=== PATIENT | female | born 1955 | race Caucasian/White ===

== ENCOUNTER 2017-05-09 20:46 | Emergency (ER) | payer BC ==
[2017-05-09 20:46] VITALS: BMI 25.0
--- NOTE | 2017-05-09 21:07 | ED PDOC ---
Arrival/HPI - General Historian: Patient - General Time Seen by Provider: 05/09/17 20:51 - History of Present Illness Narrative History of Present Illness (Text): 05/09/17 21:05 61yo female with PMHx of GERD and hypercholestrolemia who present with complaint of epigastric discomfort, vomiting x 1 and diarrhea x 2 since this afternoon. she notes that she started Levaquin today for UTI. She denies hematemesis, hematochezia, fever, chills, chest pain, SOB, dizziness, sick contact, any other complaint. (Panda,Roman A) Past Medical History - Provider Review Nursing Documentation Reviewed: Yes - Infectious Disease Hx of Infectious Diseases: None - Tetanus Immunization Tetanus Immunization: Unknown - Cardiac Hx Hyperlipemia: Yes - Gastrointestinal Hx Gastroesophageal Reflux: Yes - Psychiatric Hx Depression: No Hx Emotional Abuse: No Hx Physical Abuse: No Hx Substance Use: No - Past Surgical History Past Surgical History: No Previous - Suicidal Assessment Feels Threatened In Home Enviroment: No Family/Social History - Physician Review Nursing Documentation Reviewed: Yes Family/Social History: Unknown Family HX Hx Alcohol Use: No Hx Substance Use: No Hx Substance Use Treatment: No Allergies/Home Meds Allergies/Adverse Reactions: Allergies No Known Allergies Allergy (Verified 05/09/17 21:10) Home Medications: Home Meds Medication Instructions Recorded Confirmed Simvastatin [Zocor] 20 mg PO DAILY 12/05/15 05/09/17 levoFLOXacin [Levaquin] 250 mg PO DAILY 05/09/17 05/09/17 Review of Systems - Physician Review All systems were reviewed & negative as marked: Yes - Review of Systems Constitutional: Normal Eyes: Normal ENT: Normal Respiratory: Normal Cardiovascular: Normal Gastrointestinal: Abdominal Pain, Diarrhea, Nausea, Vomiting. absent: Constipation, Hematochezia, Hematemesis Genitourinary Female: Normal Musculoskeletal: Normal Skin: Normal Neurological: Normal Endocrine: Normal Hemo/Lymphatic: Normal Psychiatric: Normal Physical Exam Vital Signs Reviewed: Yes Temperature: Afebrile Blood Pressure: Normal Pulse: Regular Respiratory Rate: Normal Appearance: Positive for: Well-Appearing, Non-Toxic, Comfortable Pain Distress: None Mental Status: Positive for: Alert and Oriented X 3 - Systems Exam Head: Present: Atraumatic, Normocephalic Pupils: Present: PERRL Extroacular Muscles: Present: EOMI Conjunctiva: Present: Normal Mouth: Present: Moist Mucous Membranes Neck: Present: Normal Range of Motion Respiratory/Chest: Present: Clear to Auscultation, Good Air Exchange. No: Respiratory Distress, Accessory Muscle Use Cardiovascular: Present: Regular Rate and Rhythm, Normal S1, S2. No: Murmurs Abdomen: Present: Normal Bowel Sounds, Other (Soft). No: Tenderness, Distention , Peritoneal Signs, Rebound, Guarding, McBurney's Point Tender, Rovsing's Sign Present Back: Present: Normal Inspection Upper Extremity: Present: Normal Inspection. No: Cyanosis, Edema Lower Extremity: Present: Normal Inspection. No: Edema Neurological: Present: GCS=15, CN II-XII Intact, Speech Normal Skin: Present: Warm, Dry, Normal Color. No: Rashes Psychiatric: Present: Alert, Oriented x 3, Normal Insight, Normal Concentration Vital Signs Temp Pulse Resp BP Pulse Ox 05/09/17 23:05 73 18 129/75 95 05/09/17 21:19 98.4 F 82 16 129/73 98 05/09/17 21:02 98.4 F 82 16 129/73 98 Medical Decision Making ED Course and Treatment: 05/10/17 02:01 PT in ED for stated history. She was hemoynamically stable in ED. Lab was unremarkable. UTI was noted in her UA. She is currently on Levaquin and requested a different abx. MAcrobid was given. Abdominal CT - No acute finding Result was DW the pt and she was referred to her PMD. (Roman Mosqueda) - Lab Interpretations Lab Results: 05/09/17 21:15 05/09/17 21:15 Lab Results 05/09/17 22:22: Urine Color yellow, Urine Appearance Clear, Urine pH 6.0, Ur Specific [place] 1.010, Urine Protein Negative, Urine Glucose (UA) Negative, Urine Ketones Negative, Urine Blood Small H, Urine Nitrate Negative, Urine Bilirubin Negative, Urine Urobilinogen 0.2, Ur Leukocyte Esterase Small H, Urine RBC 10 - 15, Urine WBC 10 - 15, Ur Epithelial Cells 6 - 8 05/09/17 21:35: PT 13.5 H, INR 1.23 H, APTT 32.0 05/09/17 21:15: Sodium 140, Potassium 4.2, Chloride 104, Carbon Dioxide 26, Anion Gap 14, BUN 13, Creatinine 0.8, Est GFR ( Amer) > 60, Est GFR (Non- Af Amer) > 60, Random Glucose 124 H, Calcium 9.3, Total Bilirubin 0.8, AST 32, ALT 45, Alkaline Phosphatase 100, Lactate Dehydrogenase 460, Total Creatine Kinase 118, Troponin I < 0.01, Total Protein 7.8, Albumin 4.3, Globulin 3.5, Albumin/Globulin Ratio 1.2, Amylase 90, Lipase 69 05/09/17 21:15: WBC 10.4, RBC 4.47, Hgb 13.7, Hct 40.9, MCV 91.5, MCH 30.6, MCHC 33.5, RDW 12.6, Plt Count 324, MPV 8.8, Gran % 74.3 H, Lymph % (Auto) 17.8 L, [place] % (Auto) 7.4 H, Eos % (Auto) 0.3 L, Baso % (Auto) 0.2, Gran # 7.70 H, Lymph # 1.8, Labette # 0.8 H, Eos # 0.0, Baso # 0.02 - RAD Interpretation Radiology Orders: 05/09/17 21:21 ABD & PELVIS W/O PO OR IV CONT [CT] Stat - Medication Orders Current Medication Orders: Discontinued Medications Famotidine (Pepcid) 20 mg IVP STAT STA Stop: 05/09/17 21:22 Last Admin: 05/09/17 21:44 Dose: 20 mg IVP Administration Document 05/09/17 21:44 YP (Rec: 05/09/17 21:44 [id number] Charges for Administration # of IVP Administrations 1 Sodium Chloride (Sodium Chloride 0.9%) 1,000 mls @ 100 mls/hr IV .Q10H STA Stop: 05/10/17 07:20 Last Admin: 05/09/17 21:35 Dose: 100 mls/hr eMAR Start Stop Document 05/09/17 21:35 YP (Rec: 05/09/17 21:44 YP [id number]) Intravenous Solution Start Date 05/09/17 Start Time 21:35 Ondansetron HCl (Zofran Inj) 4 mg IVP STAT STA Stop: 05/09/17 21:22 Last Admin: 05/09/17 21:42 Dose: 4 mg IVP Administration Document 05/09/17 21:42 YP (Rec: 05/09/17 21:44 YP [facility] [id number]) Charges for Administration # of IVP Administrations 1 Disposition/Present on Arrival - Present on Arrival Any Indicators Present on Arrival: No History of DVT/PE: No History of Uncontrolled Diabetes: No Urinary Catheter: No History Surgical Site Infection Following: None - Disposition Have Diagnosis and Disposition been Completed?: Yes Disposition Time: 11:35 Patient Plan: Discharge - Disposition Diagnosis: Nausea vomiting and diarrhea, Abdominal pain, UTI (urinary tract infection) Disposition: HOME/ ROUTINE Condition: STABLE Discharge Instructions (ExitCare): Urinary Tract Infection in Women (ED), Abdominal Pain (ED) Additional Instructions: Follow up with your doctor Follow BLAND diet and drink plenty of fluid Return to ED for any new or worsening symptoms Prescriptions: Famotidine [Pepcid] 0 % PO DAILY #10 tab Nitrofurantoin Macrocrystals [Macrobid] 100 mg PO BID #14 cap Ondansetron ODT [Zofran ODT] 4 mg PO Q6 #6 odt Referrals: Giselle Angel, [Primary Care Provider] - Follow up with primary Forms: [employer] ([place])
[2017-05-09 21:10] VITALS: TEMP 98.4
[2017-05-09] MEDS ORDERED: Sodium Chloride 0.9% 1,000 ML IV STA (21:21)
[2017-05-09 21:34] LABS: BASO # 0.02 K/mm3 (0.0-2.0); BASO % 0.2 % (0.0-3.0); EOS % 0.3 % (1.5-5.0); GRAN # 7.7 (1.4-6.5); GRAN % 74.3 % (50.0-68.0); HEMATOCRIT 40.9 % (36.0-48.0); LYMPH # 1.8 (1.2-3.4); LYMPH % 17.8 % (22.0-35.0); MEAN CELL VOLUME 91.5 fl (80.0-105.0); MEAN CORPUSCULAR HEMOGLOBIN 30.6 pg (25.0-35.0); MEAN CORPUSCULAR HGB CONC 33.5 g/dl (31.0-37.0); MEAN PLATELET VOLUME 8.8 fl (7.0-11.0); MONO # 0.8 (0.1-0.6); MONO % 7.4 % (1.0-6.0); RED CELL DISTRIBUTION WIDTH 12.6 % (11.5-14.5); WHITE BLOOD COUNT 10.4 10^3/ul (4.5-11.0)
[2017-05-09 21:45] LABS: ALB/GLOB RATIO 1.2 (1.1-1.8); ALKALINE PHOSPHATASE 100 U/L (38-126); ALT/SGPT 45 U/L (7-56); AMYLASE 90 U/L (35-125); AST/SGOT 32 U/L (14-36); BILIRUBIN,TOTAL 0.8 mg/dL (0.2-1.3); BLOOD UREA NITROGEN 13 mg/dL (7-21); CALCIUM 9.3 mg/dL (8.4-10.5); CARBON DIOXIDE 26 mmol/L (21-33); CHLORIDE 104 mmol/L (98-107); GFR AFRICAN-AMERICAN > 60; GLUCOSE,RANDOM 124 mg/dL (70-110); LIPASE 69 U/L (23-300); POTASSIUM 4.2 mmol/L (3.6-5.0); SODIUM 140 mmol/L (132-148); TOTAL PROTEIN 7.8 g/dL (5.8-8.3)
[2017-05-09 21:55] LABS: INR 1.23 (0.93-1.08)
[2017-05-09 21:55] LABS: TROPONIN I < 0.01 ng/mL
[2017-05-09 22:42] LABS: URINE BILIRUBIN NEGATIVE (NEGATIVE); URINE BLOOD SMALL (NEGATIVE); URINE GLUCOSE (UA) NEGATIVE (NEGATIVE); URINE KETONE NEGATIVE (NEGATIVE); URINE LEUKOCYTE ESTERASE SMALL Leu/uL (NEGATIVE); URINE PROTEIN NEGATIVE mg/dL (<30 mg/dL); URINE UROBILINOGEN 0.2 E.U./dL (<1 E.U./dL)
[2017-05-09 22:44] LABS: URINE APPEARANCE CLEAR (CLEAR)
[2017-05-09 23:11] VITALS: BP 129/75; PULSE 73; RESP 18; O2SAT 95
--- NOTE | 2017-05-09 23:11 | CT ---
EXAM: CT Abdomen and Pelvis Without Intravenous Contrast CLINICAL HISTORY: 61 years old, female; Pain; Abdominal pain TECHNIQUE: Axial computed tomography images of the abdomen and pelvis without intravenous contrast. All CT scans at this facility use one or more dose reduction techniques, viz.: automated exposure control; ma/kV adjustment per patient size (including targeted exams where dose is matched to indication; i.e. head); or iterative reconstruction technique. Coronal and sagittal reformatted images were created and reviewed. COMPARISON: None FINDINGS: Lower thorax: The bilateral lung bases are clear. ABDOMEN: Liver: No acute findings Gallbladder and bile ducts: No acute finding. No calcified stones. No intra-extrahepatic biliary ductal dilation. Pancreas: Limited evaluation secondary to the lack of intravenous contrast. Spleen: No acute findings. Adrenals: No acute findings. Kidneys and ureters: No obstructing stones. No hydronephrosis. PELVIS: Bladder: No acute findings. Reproductive: The uterus is nodular in contour. Appendix: The appendix is of normal caliber (series 3, image 126). ABDOMEN and PELVIS: Stomach and bowel: No acute findings. Peritoneum: No acute findings. Lymph nodes: Limited evaluation without intravenous contrast. Vasculature: No aortic aneurysm. Calcified atherosclerotic disease. Bones: No acute fracture. IMPRESSION: No acute intra-abdominal pathology, as detailed above.
--- NOTE | 2017-05-10 21:01 | CARD ---
APPROVED REPORT EKG Measurement Heart [id number] <Conclusion> Normal sinus rhythm Normal ECG
== END 2017-05-10 00:07 | disposition home or self-care (01) ==
LOC: ED 20:46
DX: N39.0 Urinary tract infection, site not specified (principal); R10.9 Unspecified abdominal pain; R19.7 Diarrhea, unspecified; R11.2 Nausea with vomiting, unspecified
CPT/HCPCS: 74176; 80053; 81001; 82150; 82550; 83615; 83690; 84484; 85025; 85610; 85730; 87086; 93005; 96374; 96375; 99283; J2405; J7040